=== PATIENT | male | born 2000 | race Caucasian/White ===

== ENCOUNTER 2019-12-16 02:03 | Emergency (ER) | payer SELFPAY ==
[~2019-12-16] VITALS: Ht 170.2 cm; Wt 77.3 kg
[2019-12-16 02:35] VITALS: BP 131/83; Ht 170.2 cm; Wt 77.3 kg
[2019-12-16] MEDS ORDERED: CILOXAN5 ML RIGHT EYE (02:58)
== END 2019-12-16 03:09 | disposition home or self-care (01) ==
LOC: D.ER 02:03
DX: H10.31 Unspecified acute conjunctivitis, right eye (principal); H10.89 Other conjunctivitis; F17.210 Nicotine dependence, cigarettes, uncomplicated